=== PATIENT | female | born 1935 | race Caucasian/White ===

== ENCOUNTER 2017-02-23 09:29 | Inpatient (IN) ==
[2017-02-23] MEDS ORDERED: ACETAMINOPHEN 325 MG TABLET PO PRN (12:38)
[2017-02-23] MEDS ORDERED: ONDANSETRON 4 MG/2 ML VIAL IV PRN (12:38)
--- NOTE | 2017-02-23 13:50 | Hospitalist History & Physical ---
<Adryan Xiong - Last Filed: 02/23/17 16:36> Assessment and Plan (1) GI bleed Status: Acute Assessment and plan: Patient reported hematemesis and dark loose stools. H&H is 10.5 and 32.2. Of note the patient is on warfarin and therapeutic at 2.5. Will obtain CBC here. Type and screen and transfuse as indicated. GI has been consulted. Current Visit: Yes (2) Hypertension Status: Acute Current Visit: Yes (3) History of TIA (transient ischemic attack) Status: Acute Current Visit: Yes (4) History of pulmonary embolus (PE) Status: Acute Assessment and plan: Patient on warfarin therapy. INR is 2.5. Current Visit: Yes (5) Heart failure, systolic and diastolic Status: Acute Current Visit: No History of Present Illness Chief complaint: GI bleed History of present illness: Ms. Gannon is a 81 year old female with a past medical history significant for hypertension, pulmonary embolism, TIA, chronic back pain who presents to [facility] as a direct admit transfer from [facility] and [facility] for further evaluation of GI bleed. Patient notes that she has been having "dizzy spells" earlier this week and at approximately 4 AM this morning needed to go to the restroom and noted "black loose stool". Patient returned to her room and slept in an upright position before having to return to the bathroom to vomit. She reports that she had dark red emesis thatwas difficult to control. Patient states that "it felt like it was going on forever". Patient's grandson called EMS who took the patient to [facility]. There, the patient was found to be anemic with H&H 10.5 and 32.2, BUN 68, creatinine 1.17. On exam here at [place], the patient noted that she had been diaphoretic and near syncope. Her only complaint at this time is a dry mouth. She denies headache, blurred vision, palpitations, chest pain, shortness of breath, abdominal pain, numbness or tingling. Case has been discussed with Dr. Gonzalez, and the patient will be evaluated for further treatment. GI has been consulted for possible upper and lower scope. Patient is listed as a full code. Medications have been reviewed and reconciled. Home Medications Medication Instructions Recorded Confirmed Type Albuterol Sulfate [Ventolin HFA] 2 puff INH Q6H PRN 11/18/16 02/23/17 History Carvedilol 6.25 mg PO BID 11/18/16 02/23/17 History Furosemide Tab [Lasix Tab] 40 mg PO BID DIURETIC #0 11/18/16 02/23/17 Rx Isosorbide Mononitrate 10 mg PO BID #0 11/18/16 11/18/16 Rx Levothyroxine Tab [Synthroid Tab] 150 mcg PO DAILY@0700 11/18/16 02/23/17 History Losartan Potassium 100 mg PO DAILY #0 11/18/16 02/23/17 Rx Potassium Chloride [Klor-Con 10] 10 meq PO BID #0 11/18/16 02/23/17 Rx Spironolactone 12.5 mg PO BID #0 11/18/16 02/23/17 Rx Warfarin [Coumadin] 4 mg PO DAILY@1800 #0 11/18/16 02/23/17 Rx traZODone [Desyrel] 25 mg PO BEDTIME 11/18/16 02/23/17 History Allergies Allergy/AdvReac Type Severity Reaction Status Date / Time codeine Allergy Mild ITCHING Verified 11/18/16 10:48 Penicillins Allergy ITCHING Verified 11/18/16 10:48 Medical,Surgical,& Family Hx - Medical History Cardio: History of: CHF, Hypertension Neurology: History of: Cerebrovascular Accident, TIA No history of: Seizures Endocrine: History of: Thyroid Disorder Respiratory: History of: Pulmonary Embolism Musculoskeletal: History of: Musculoskeletal Problems (knee injections, arthritis) - Surgical History HEENT Surgeries: Surgical HX of: Tonsilectomy & Adenoidectomy Abdominal Surgeries: Surgical HX of: Cholecystectomy Reproductive Surgeries: Surgical HX of;: Breast Surgery (cyst removed from breast), Hysterectomy Orthopedic Surgeries: Surgical HX of;: Orthopedic Surgery (heel surgery) - Family History Family History: Reports;: Family Cancer (mother- skin cancer), Family Heart Disease (mother, father), Family Hypertension (mother, father), Family Stroke ( father) Denies;: Family Anesthesia Reaction, Family Diabetes, Family Hematology, Family Psychiatric Problems, Additional Family History - Social History Smoking Status: Never smoker Frequency of Alcohol Use: None Type of Drug Use: None Marital Status: Single Lives With:: Grandson Functional capacity: independent ambulation - Constitutional Constitutional: Present: weakness. Absent: chills, headache(s) - EENT Eyes: Absent: blurry vision, loss of vision Nose, mouth and throat: Absent: headache(s), neck pain, sore throat - Cardiovascular Cardiovascular: Present: diaphoresis. Absent: chest pain at rest, dyspnea, edema, palpitations - Respiratory Respiratory: Absent: cough, dyspnea, wheezing, snoring - Gastrointestinal Gastrointestinal: Present: diarrhea, hematemesis, loose stools, melena. Absent : abdominal pain - Genitourinary Genitourinary: Absent: dysuria, flank pain - Musculoskeletal Musculoskeletal: Present: back pain. Absent: limited range of motion, muscle weakness - Neurological Neurological: Present: dizziness. Absent: abnormal gait, abnormal speech, numbness, syncope - Psychiatric Psychiatric: Absent: anxiety, depression - Endocrine Endocrine: Absent: cold intolerance, fatigue, heat intolerance - Hematologic/Lymphatic Hematologic/Lymphatic: Present: easy bleeding, easy bruising Exam - Constitutional Vitals: Period Temp Pulse Resp BP Sys/Diaz Pulse Ox Last 24 Hr 97.8 F 94 18 116/61 98 Exam: General appearance: overweight, mild distress - Head Head exam: Present: normocephalic, atraumatic - Eye Eye exam: Present: EOMI. Absent: conjunctival injection, nystagmus Pupils: Present: SPENCER, normal accommodation - ENT ENT exam: Present: normal exam, normal external ear exam - Neck Neck exam: Present: normal inspection. Absent: lymphadenopathy, tenderness, thyromegaly - Respiratory Respiratory exam: Present: clear to auscultation bilaterally. Absent: rales, rhonchi, wheezes - Cardiovascular Cardiovascular exam: Present: regular rate and rhythm. Absent: carotid bruit, gallop, rubs - GI/Abdominal GI/Abdominal exam: Present: normal bowel sounds. Absent: ascites, distended, mass - Extremities Exam Extremities exam: Present: normal inspection, normal capillary refill. Absent: edema - Back Exam Back exam: Absent: CVA tenderness (L), CVA tenderness (R) - Neurological Exam Neurological exam: Present: alert, oriented X3 - Psychiatric Psychiatric exam: Present: normal affect, normal mood - Skin Skin exam: Present: normal color, warm, dry <Lana Gonzalez - Last Filed: 02/24/17 07:28> History of Present Illness History of present illness: Ms. Gannon is a 81 year old female with dark red emesis and dark tarry stools. She takes Coumadin for PE and INR was 2.3 from the other hospital. Plan GI consult Serial cbc IVF INR in am hold Coumadin for now Exam - Constitutional Vitals: Period Temp Pulse Resp BP Sys/Diaz Pulse Ox Last 24 Hr 96.4 F-99.2 F 69-104 18-22 116-157/49-70 90-99 Results - Labs CBC & BMP: 02/24/17 00:26
[2017-02-23] MEDS ORDERED: PANTOPRAZOLE 40 MG VIAL IV ONE (15:08)
--- NOTE | 2017-02-23 15:27 | Gastrointestinal Consult Note ---
<Megan Escobar - Last Filed: 02/23/17 15:40> Assessment and Plan (1) GI bleed Status: Acute Assessment and plan: 02/23-sudden onset of nausea with vomiting of dark red emesis without associated abdominal pain. No melena or hematochezia. On Coumadin therapy for history of PE with last dose last night. Transfer labs noted with H&H of 10 and 32, INR 2.3. Current lab work pending at present time. May start clear liquids at present time and tentative EGD tomorrow to further evaluate. Plan an addendum to follow by Dr. Hernandez. Current Visit: Yes History of Present Illness Chief complaint: Hematemesis History of present illness: Ms. Gannon is a 81 year old female who presented to the emergency room with sudden onset of nausea and vomiting of dark red blood. Patient states that she was in her usual state of health until last night. She states that she did not feel well in general and felt a little nauseated and went to bed. She states that she woke suddenly this morning at 4 AM and went to the bathroom and had an episode of vomiting in which she states she vomited a large amount of dark red emesis. She states that some of the emesis was dark black but denies any coffee -ground appearance. She states that she did this 2 or 3 times until her family came in to check on her. At that time they then decided to come to the emergency room for further evaluation. Patient was initially seen at [facility]. Her initial lab work showed an H&H of 10 and 32, BUN/ creatinine ratio 58.1, and an INR of 2.3. She was then transferred to our facility for further evaluation. Patient states that she has never had this happen in the past. She states that she has no abdominal pain associated with this. She denies any melena or hematochezia prior to this. She states she does take Coumadin for history of PE 2 years ago and was to take her last dose tonight before holding it for 1 week for a back injection next week in [place]. She reports taking the Coumadin last night prior to bed. She denies any reflux symptoms, dysphagia, dyspepsia, or weight loss. She denies any prior endoscopy, upper or lower. She denies any NSAID use however upon reviewing her medication list from her transfer, she is noted to have Toradol ordered as needed however states she does not take this regularly. She has a history of cholecystectomy in the past. She also has a reported history of TIA, CHF, and hypertension. She states that she saw Dr. Jain last week for cough and she was found at that time to have increased fluid around her heart and was diuresed. She states that she has had no further coughing since last week. She has had no further vomiting episodes since 4 AM this morning. Home Medications Medication Instructions Recorded Confirmed Type Albuterol Sulfate [Ventolin HFA] 2 puff INH Q6H PRN 11/18/16 02/23/17 History Carvedilol 6.25 mg PO BID 11/18/16 02/23/17 History Furosemide Tab [Lasix Tab] 40 mg PO BID DIURETIC #0 11/18/16 02/23/17 Rx Isosorbide Mononitrate 10 mg PO BID #0 11/18/16 11/18/16 Rx Levothyroxine Tab [Synthroid Tab] 150 mcg PO DAILY@0700 11/18/16 02/23/17 History Losartan Potassium 100 mg PO DAILY #0 11/18/16 02/23/17 Rx Potassium Chloride [Klor-Con 10] 10 meq PO BID #0 11/18/16 02/23/17 Rx Spironolactone 12.5 mg PO BID #0 11/18/16 02/23/17 Rx Warfarin [Coumadin] 4 mg PO DAILY@1800 #0 11/18/16 02/23/17 Rx traZODone [Desyrel] 25 mg PO BEDTIME 11/18/16 02/23/17 History Allergies Allergy/AdvReac Type Severity Reaction Status Date / Time codeine Allergy Mild ITCHING Verified 11/18/16 10:48 Penicillins Allergy ITCHING Verified 11/18/16 10:48 Medical,Surgical,& Family Hx - Medical History Cardio: History of: CHF, Hypertension Neurology: History of: Cerebrovascular Accident, TIA No history of: Seizures Endocrine: History of: Thyroid Disorder Respiratory: History of: Pulmonary Embolism Musculoskeletal: History of: Musculoskeletal Problems (knee injections, arthritis) - Surgical History HEENT Surgeries: Surgical HX of: Tonsilectomy & Adenoidectomy Abdominal Surgeries: Surgical HX of: Cholecystectomy Reproductive Surgeries: Surgical HX of;: Breast Surgery (cyst removed from breast), Hysterectomy Orthopedic Surgeries: Surgical HX of;: Orthopedic Surgery (heel surgery) - Family History Family History: Reports;: Family Cancer (mother- skin cancer), Family Heart Disease (mother, father), Family Hypertension (mother, father), Family Stroke ( father) Denies;: Family Anesthesia Reaction, Family Diabetes, Family Hematology, Family Psychiatric Problems, Additional Family History - Social History Smoking Status: Never smoker Frequency of Alcohol Use: None Type of Drug Use: None 12 point system: reviewed and no additional remarkable complaints except as stated - Constitutional Constitutional: Present: as per HPI - EENT Eyes: Present: as per HPI Ears: Present: as per HPI Nose, mouth and throat: Present: as per HPI - Cardiovascular Cardiovascular: Present: as per HPI - Respiratory Respiratory: Present: as per HPI - Gastrointestinal Gastrointestinal: Present: as per HPI, hematemesis - Genitourinary Genitourinary: Present: as per HPI - Musculoskeletal Musculoskeletal: Present: as per HPI - Neurological Neurological: Present: as per HPI - Psychiatric Psychiatric: Present: as per HPI - Endocrine Endocrine: Present: as per HPI - Hematologic/Lymphatic Hematologic/Lymphatic: Present: as per HPI Exam - Constitutional Vitals: Period Temp Pulse Resp BP Sys/Diaz Pulse Ox Last 24 Hr 97.8 F 94 18 116/61 98 General appearance: normal weight, no acute distress - Head Head exam: Present: normal inspection, normocephalic - Eye Eye exam: Present: other (lids and conjunctiva unremarkable). Absent: scleral icterus - ENT ENT exam: Present: normal exam, normal oropharynx - Neck Neck exam: Present: normal inspection - Respiratory Respiratory exam: Present: clear to auscultation bilaterally. Absent: rhonchi, stridor, wheezes - Cardiovascular Cardiovascular exam: Present: regular rate and rhythm. Absent: diastolic murmur , JVD, systolic murmur - GI/Abdominal GI/Abdominal exam: Present: normal bowel sounds, soft. Absent: ascites, distended, mass, tenderness - Extremities Exam Extremities exam: Present: normal inspection, full ROM - Back Exam Back exam: Present: normal inspection - Neurological Exam Neurological exam: Present: alert, oriented X3 - Psychiatric Psychiatric exam: Present: normal affect, normal mood - Skin Skin exam: Present: normal color, warm, dry Results - Labs Lab Results: I have reviewed the past 24 hour labs <Corky Hernandez - Last Filed: 02/23/17 18:25> History of Present Illness History of present illness: Ms. Gannon is a 81 year old female Exam - Constitutional Vitals: Period Temp Pulse Resp BP Sys/Diaz Pulse Ox Last 24 Hr 97.8 F-98.5 F 94-100 18-18 116-121/60-61 97-98
[2017-02-23] MEDS: SODIUM CHLORIDE 0.9% 1,000 ML IV SCH (16:59)
[2017-02-23] MEDS ORDERED: PHYTONADIONE 10 MG/1 ML AMP SUBCUT ONE (18:26)
[2017-02-23 19:17] LABS: Apearance,Urine CLOUDY (Clear); Bacteria,Urine Moderate /HPF (Few); Bilirubin,Urine Negative (Negative); Blood, Urine Large mg/dL (Negative); Glucose,Urine (UA) Negative (Negative); Hyaline Casts,Urine 2 /LPF (0-3); Ketones,Urine Negative (Negative); Mucus,Urine Occasional /LPF (Occasional); Nitrite,Urine Negative (Negative); Protein,Urine Negative; RBC,Urine 10 /HPF (0-4); Squamous Epithelial Cell,Urine Occasional /HPF (0-10); Urine Color Yellow (Yellow); Urine Specific Gravity 1.015 (1.001-1.035); Urine Urobilinogen < 2.0 EU/DL (0.2-1.0); WBC,Urine 9 /HPF (0-6)
[2017-02-23] MEDS ORDERED: PANTOPRAZOLE 40 MG TABLET PO SCH (21:00)
[2017-02-23 21:15] LABS: Basophils % 0.1 % (0.0-0.8); Eosinophils % 0.3 % (0.00-10.9); Hematocrit 22.3 VOL% (35.7-47.0); Hemoglobin 7.1 GM/DL (12.0-16.0); Immature Granulocytes % 0.7 %; Immature Granulocytes Absolute 0.08 #; Lymphocytes % 17.5 % (21.3-54.2); Mean Corpuscular HGB Conc 31.8 GM/DL (32-36); Mean Corpuscular Hemoglobin 31 PG (27-34); Mean Corpuscular Volume 98.2 FL (87-102); Mean Platelet Volume 10.7 FL (9.6-12.0); Monocytes # 1.1 10*3/uL (0.11-0.8); Monocytes % 9.9 % (1.7-12.7); Neutrophils # 8.2 10*3/uL (1.4-7.4); Neutrophils % 71.5 % (38.7-73.9); Platelet Count 167 T/CUMM (130-400); Red Blood Count 2.27 MC/CUMM (3.8-5.5); Red Cell Distribution Width 13.9 % (9.3-17.3); White Blood Count 11.5 T/CUMM (4-12)
[2017-02-23] MEDS: PANTOPRAZOLE 40 MG VIAL IV SCH (21:46)
[2017-02-23] MEDS: traZODone 50 MG TABLET PO SCH (21:47)
[2017-02-23] MEDS ORDERED: SODIUM CHLORIDE 0.9% 250 ML IV PRN (23:31)
[2017-02-24 01:08] LABS: Basophils % 0.2 % (0.0-0.8); Eosinophils # 0.1 10*3/uL (0.0-0.87); Eosinophils % 0.5 % (0.00-10.9); Hematocrit 20.7 VOL% (35.7-47.0); Hemoglobin 6.5 GM/DL (12.0-16.0); Immature Granulocytes % 1.3 %; Immature Granulocytes Absolute 0.14 #; Lymphocytes # 2.2 10*3/uL (1.4-4.0); Lymphocytes % 20.3 % (21.3-54.2); Mean Corpuscular HGB Conc 31.4 GM/DL (32-36); Mean Corpuscular Hemoglobin 31 PG (27-34); Mean Corpuscular Volume 97.6 FL (87-102); Mean Platelet Volume 11.1 FL (9.6-12.0); Monocytes # 1.1 10*3/uL (0.11-0.8); Monocytes % 9.6 % (1.7-12.7); Neutrophils # 7.5 10*3/uL (1.4-7.4); Neutrophils % 68.1 % (38.7-73.9); Platelet Count 170 T/CUMM (130-400); Red Blood Count 2.12 MC/CUMM (3.8-5.5); Red Cell Distribution Width 13.8 % (9.3-17.3)
[2017-02-24] MEDS: NITROFURANTOIN MACRO/MONO 100 MG CAPSULE PO SCH ×3 (01:17→20:52)
[2017-02-24] MEDS ORDERED: FUROSEMIDE 20 MG/2 ML VIAL IM ONE (03:22)
[2017-02-24] MEDS ORDERED: FUROSEMIDE 40 MG/4 ML VIAL ONE (04:58)
[2017-02-24] MEDS ORDERED: FUROSEMIDE 20 MG/2 ML VIAL IV ONE (05:00)
[2017-02-24] MEDS: SODIUM CHLORIDE 0.9% 1,000 ML IV SCH ×2 (05:03→23:06)
--- NOTE | 2017-02-24 07:22 | EKG Report ---
Stationary ECG Study [facility] Test Date: 02/24/2017 7:22:19 AM Pat Name: SHASHANK CONTEH Department: Room: 537 Gender: F Development Manager: : 1935 Requested by: Govind Antunez Order Number: [id number] Reading MD: KEVIN PAEZ Intervals [place] Rate: 81 P: 69 PA: 200 QRS: -66 QRSD: 156 T: 59 QT: 420 QTc: 458 Interpretive Statements SINUS RHYTHM WITH FREQUENT SUPRAVENTRICULAR PREMATURE COMPLEXES LEFT BUNDLE BRANCH BLOCK Electronically Signed On 02-25-17 16:17:25 CDT by KEVIN PAEZ [email or web address]
[2017-02-24] MEDS: LEVOTHYROXINE 150 MCG TABLET PO SCH (08:41)
[2017-02-24] MEDS: PANTOPRAZOLE 40 MG VIAL IV SCH ×2 (08:41→20:52)
[2017-02-24] MEDS ORDERED: PROPOFOL 200 MG/20 ML VIAL IV ONE (09:00)
[2017-02-24] MEDS ORDERED: LIDOCAINE 1% 5 ML VIAL ONE (09:00)
[2017-02-24 09:42] LABS: Basophils % 0.2 % (0.0-0.8); Eosinophils # 0.1 10*3/uL (0.0-0.87); Eosinophils % 0.9 % (0.00-10.9); Hematocrit 28.3 VOL% (35.7-47.0); Immature Granulocytes % 0.7 %; Immature Granulocytes Absolute 0.08 #; Lymphocytes % 18.1 % (21.3-54.2); Mean Corpuscular HGB Conc 32.9 GM/DL (32-36); Mean Corpuscular Hemoglobin 30 PG (27-34); Mean Corpuscular Volume 91.6 FL (87-102); Monocytes # 1.1 10*3/uL (0.11-0.8); Monocytes % 10.4 % (1.7-12.7); Neutrophils # 7.6 10*3/uL (1.4-7.4); Neutrophils % 69.7 % (38.7-73.9); Platelet Count 157 T/CUMM (130-400); Red Cell Distribution Width 15.3 % (9.3-17.3); White Blood Count 10.9 T/CUMM (4-12)
[2017-02-24 09:46] LABS: Hemoglobin 9.3 GM/DL (12.0-16.0); Red Blood Count 3.09 MC/CUMM (3.8-5.5)
[2017-02-24 09:51] LABS: INR 1.6; PT Patient Result 17.3 SECS
--- NOTE | 2017-02-24 09:58 | Hospitalist Progress Note ---
<Adryan Xiong - Last Filed: 02/24/17 09:56> Assessment and Plan (1) GI bleed Status: Acute Assessment and plan: Patient reported hematemesis and dark loose stools. H&H is 10.5 and 32.2. Of note the patient is on warfarin and therapeutic at 2.5. Will obtain CBC here. Type and screen and transfuse as indicated. GI has been consulted. 02/24/17-H&H noted to have dropped overnight down to 6.5 and 20.7. Patient was transfused with 1 unit of RBCs this morning. H&H has since come up to 9.3 and 28.3. Patient is scheduled to have EGD this morning. Will likely transfuse another unit of blood post EGD. Warfarin has been held. Patient was given 5 mg of vitamin K in preparation for EGD. INR down to 1.6 this morning. Current Visit: Yes (2) Hypertension Status: Acute Assessment and plan: Blood pressure remained stable. Continue current treatment plan. Current Visit: Yes (3) History of TIA (transient ischemic attack) Status: Acute Current Visit: Yes (4) History of pulmonary embolus (PE) Status: Acute Assessment and plan: Patient on warfarin therapy. INR is 2.5. 02/24/17-warfarin has been held due to GI bleeding. Current Visit: Yes (5) Heart failure, systolic and diastolic Status: Acute Current Visit: No Hospitalist: Subjective Interval history: Patient seen and examined today. She was lying in bed awake and alert on exam. Patient states she is feeling about the same with no new complaints overnight. Patient did have a drop in H&H overnight with the last documented H& H overnight being 6.5 and 20.7. Patient was transfused with 1 unit of RBCs this morning. She is scheduled for an EGD this morning by GI. Will likely transfuse another unit of blood post EGD. Exam - Constitutional Vitals: Period Temp Pulse Resp BP Sys/Diaz Pulse Ox Last 24 Hr 96.4 F-99.2 F 69-104 18-22 116-157/49-72 90-99 Exam: General appearance: overweight, mild distress - Head Head exam: Present: normocephalic, atraumatic - Eye Eye exam: Present: EOMI. Absent: conjunctival injection, nystagmus Pupils: Present: SPENCER, normal accommodation - ENT ENT exam: Present: normal exam, normal external ear exam - Neck Neck exam: Present: normal inspection. Absent: lymphadenopathy, tenderness, thyromegaly - Respiratory Respiratory exam: Present: clear to auscultation bilaterally. Absent: rales, rhonchi, wheezes - Cardiovascular Cardiovascular exam: Present: regular rate and rhythm. Absent: carotid bruit, gallop, rubs - GI/Abdominal GI/Abdominal exam: Present: normal bowel sounds. Absent: ascites, distended, mass - Extremities Exam Extremities exam: Present: normal inspection, normal capillary refill. Absent: edema - Back Exam Back exam: Absent: CVA tenderness (L), CVA tenderness (R) - Neurological Exam Neurological exam: Present: alert, oriented X3 - Psychiatric Psychiatric exam: Present: normal affect, normal mood - Skin Skin exam: Present: normal color, warm, dry Results - Labs CBC & BMP: 02/24/17 09:14 Lab Results: I have reviewed the past 24 hour labs <Lana Gonzalez - Last Filed: 02/24/17 15:44> Hospitalist: Subjective Interval history: Patient has no episode of bleed since admission. Exam - Constitutional Vitals: Period Temp Pulse Resp BP Sys/Diaz Pulse Ox Last 24 Hr 96.4 F-99.2 F 69-104 14-22 106-157/49-73 88-100 Results - Labs CBC & BMP: 02/24/17 09:14 02/24/17 09:14
[2017-02-24 10:21] LABS: Calcium 8.2 MG/DL (8.5-10.1); Magnesium 2.1 MG/DL (1.8-2.4); Osmolality,Calculated 311.4 MOS/KG (273-304); Potassium 4.2 MMOL/L (3.5-5.1)
[2017-02-24 10:22] LABS: Free T4 (Free Thyroxine) 0.84 NG/DL (0.76-1.46); Risk Ratio 4.81; Thyroid Stimulating Hormone 1.48 uIU/ml (0.358-3.74)
--- NOTE | 2017-02-24 11:21 | History and Physical Update ---
History and Physical Update - Physical Exam Mental Status: alert and oriented Heart: regular rate and rhythm Lung: clear to auscultation Abdomen: within normal limits Vitals: within normal limits
--- NOTE | 2017-02-24 11:24 | Anesthesia Post-Op ---
Anesthesia Post OP - Post Ansesthetic Evaluation Patient seen in post op: Yes Resp: within normal limits CV: within normal limits Mental: within normal limits Temp: within normal limits [id number]: within normal limits Nausea and Vomiting: within normal limits Pain: within normal limits
--- NOTE | 2017-02-24 11:24 | Operative Note ---
Date of procedure: 02/24/17 Pre-op diagnosis: Epigastric pain and acute GI bleed Procedure: EGD 81-year-old female who was admitted with hematemesis complicated by Coumadin therapy with elevated INR. She is now for upper endoscopy to further evaluate. Informed symptoms obtained the patient She was sedated with MAC anesthesia per anesthesia protocol. Patient placed left lateral decubitus position the Olympus flexible video upper endoscope was inserted into the oral cavity under direct vision the esophagus was intubated. Findings: Esophagus-normal proximal mid esophageal mucosa distal esophagus normal. Small hiatal hernia was seen Stomach-normal insufflation normal mucosa to direct retroflexed views of the body fundus and cardia the stomach. In the antrum the stomach there is mild erosive gastritis seen. Pylorus-6 mm pyloric channel ulcer with no visible vessel was identified. Duodenum-normal from the bulb and duodenum to the third portion of the duodenum. The procedure terminated placed our procedure well Postop diagnosis: 1. Acute pyloric channel ulceration.-Continue IV PPI treatment and monitor H& H. No stigmata to suggest high risk of ongoing bleeding but will need to hold her Coumadin for 4-6 weeks. 2. Gastroesophageal reflux disease-continue PPI treatment. Anesthesia: MAC Surgeon / Physician: Corky Hernandez Estimated blood loss: none Specimens: none sent Condition: stable Disposition: post procedure unit Results - Labs CBC & BMP: 02/24/17 09:14 02/24/17 09:14 Discharge Plan - Discharge Medications No Action Levothyroxine Tab [Synthroid Tab] 150 mcg PO DAILY@0700 Furosemide Tab [Lasix Tab] 40 mg PO BID DIURETIC #0 Losartan Potassium 100 mg PO DAILY #0 Potassium Chloride [Klor-Con 10] 10 meq PO BID #0 Spironolactone 12.5 mg PO BID #0 Warfarin [Coumadin] 4 mg PO DAILY@1800 #0 Spironolactone 12.5 mg PO BID Albuterol Sulfate [Ventolin HFA] 2 puff INH Q6H PRN PRN Reason: Shortness Of Breath/Wheezing traZODone [Desyrel] 25 mg PO BEDTIME Carvedilol 6.25 mg PO BID Ketorolac Tab [Toradol Tab] 10 mg PO Q6H PRN PRN Reason: Pain - Follow Up or Referral - Forms/Instructions
[2017-02-24] MEDS: traZODone 50 MG TABLET PO SCH (20:52)
[2017-02-24] MEDS: DESITIN 4OZ/NYSTATIN 15 GRAM MIXTURE PASTE TOP SCH (20:56)
[2017-02-25] MEDS: LEVOTHYROXINE 150 MCG TABLET PO SCH (06:33)
[2017-02-25 06:43] LABS: Basophils % 0.3 % (0.0-0.8); Eosinophils # 0.2 10*3/uL (0.0-0.87); Eosinophils % 3.6 % (0.00-10.9); Hematocrit 24.6 VOL% (35.7-47.0); Immature Granulocytes % 0.6 %; Immature Granulocytes Absolute 0.04 #; Lymphocytes # 1.6 10*3/uL (1.4-4.0); Lymphocytes % 23.5 % (21.3-54.2); Mean Corpuscular HGB Conc 32.5 GM/DL (32-36); Mean Corpuscular Hemoglobin 30 PG (27-34); Mean Corpuscular Volume 92.1 FL (87-102); Mean Platelet Volume 10.9 FL (9.6-12.0); Monocytes # 0.5 10*3/uL (0.11-0.8); Monocytes % 7.6 % (1.7-12.7); Neutrophils # 4.3 10*3/uL (1.4-7.4); Neutrophils % 64.4 % (38.7-73.9); Platelet Count 129 T/CUMM (130-400); Red Blood Count 2.67 MC/CUMM (3.8-5.5); Red Cell Distribution Width 15.4 % (9.3-17.3); White Blood Count 6.7 T/CUMM (4-12)
[2017-02-25 07:11] LABS: Calcium 7.9 MG/DL (8.5-10.1); Magnesium 2.3 MG/DL (1.8-2.4); Osmolality,Calculated 300.4 MOS/KG (273-304); Potassium 3.8 MMOL/L (3.5-5.1)
[2017-02-25] MEDS: NITROFURANTOIN MACRO/MONO 100 MG CAPSULE PO SCH ×2 (08:12→20:04)
[2017-02-25] MEDS: PANTOPRAZOLE 40 MG VIAL IV SCH ×2 (08:13→20:04)
[2017-02-25] MEDS: DESITIN 4OZ/NYSTATIN 15 GRAM MIXTURE PASTE TOP SCH ×2 (08:13→20:04)
--- NOTE | 2017-02-25 10:07 | Gastrointestinal Progress Note ---
<Megan Escobar Renee - Last Filed: 02/25/17 09:10> Assessment and Plan (1) GI bleed Status: Acute Assessment and plan: 02/25-EGD findings noted as below. Hemoglobin holding at 8. Tolerating diet present time. Recommendation to hold Coumadin 4-6 weeks. Plan an addendum followed by Dr. Hernandez. 02/23-sudden onset of nausea with vomiting of dark red emesis without associated abdominal pain. No melena or hematochezia. On Coumadin therapy for history of PE with last dose last night. Transfer labs noted with H&H of 10 and 32, INR 2.3. Current lab work pending at present time. May start clear liquids at present time and tentative EGD tomorrow to further evaluate. Plan an addendum to follow by Dr. Hernandez. Current Visit: Yes Gastroenterology - PN: Subj Interval history: CC: GI bleed Patient seen awake and alert sitting up in bed eating breakfast. States she had an uneventful night. She denies any abdominal pain, nausea or vomiting. Abdomen is soft, nontender. EGD findings on yesterday shows acute pyloric channel ulceration with no stigmata to suggest high risk of ongoing bleeding however recommendations are made to continue to hold her Coumadin for 4-6 weeks at this time. Hemoglobin is stable at 8 at this time. She states she has not had a bowel movement yet. ROS: Denies shortness of breath or chest pain Exam (Progress Note) - Constitutional Vitals: Period Temp Pulse Resp BP Sys/Diaz Pulse Ox Last 24 Hr 96.5 F-98.2 F 66-80 14-22 106-142/50-81 88-100 General appearance: normal weight, no acute distress - Head Head exam: Present: normal inspection, normocephalic - Eye Eye exam: Present: other (Lids and conjunctive are unremarkable). Absent: scleral icterus - ENT ENT exam: Present: normal exam, normal oropharynx - Neck Neck exam: Present: normal inspection - Respiratory Respiratory exam: Present: clear to auscultation bilaterally. Absent: rales, rhonchi, wheezes - Cardiovascular Cardiovascular exam: Present: regular rate and rhythm. Absent: diastolic murmur , JVD, systolic murmur - GI/Abdominal GI/Abdominal exam: Present: normal bowel sounds, soft. Absent: ascites, distended, mass, organomegaly, tenderness - Extremities Exam Extremities exam: Present: normal inspection, full ROM - Back Exam Back exam: Present: normal inspection - Neurological Exam Neurological exam: Present: alert, oriented X3 - Psychiatric Psychiatric exam: Present: normal affect, normal mood - Skin Skin exam: Present: normal color, warm, dry Results - Labs CBC & BMP: 02/25/17 05:48 02/25/17 05:48 Lab Results: I have reviewed the past 24 hour labs <Corky Hernandez - Last Filed: 02/25/17 18:05> Exam (Progress Note) - Constitutional Vitals: Period Temp Pulse Resp BP Sys/Diaz Pulse Ox Last 24 Hr 96.2 F-97.9 F 66-74 16-20 113-152/57-81 95-100 Results - Labs CBC & BMP: 02/25/17 10:37 02/25/17 05:48
[2017-02-25 10:52] LABS: Hematocrit 25.4 VOL% (35.7-47.0); Hemoglobin 8.5 GM/DL (12.0-16.0)
--- NOTE | 2017-02-25 10:58 | Hospitalist Progress Note ---
<Adryan Xiong - Last Filed: 02/25/17 10:52> Assessment and Plan (1) GI bleed Status: Acute Assessment and plan: Patient reported hematemesis and dark loose stools. H&H is 10.5 and 32.2. Of note the patient is on warfarin and therapeutic at 2.5. Will obtain CBC here. Type and screen and transfuse as indicated. GI has been consulted. 02/24/17-H&H noted to have dropped overnight down to 6.5 and 20.7. Patient was transfused with 1 unit of RBCs this morning. H&H has since come up to 9.3 and 28.3. Patient is scheduled to have EGD this morning. Will likely transfuse another unit of blood post EGD. Warfarin has been held. Patient was given 5 mg of vitamin K in preparation for EGD. INR down to 1.6 this morning. 02/25/70-H&H down to 8 and 24.6 today. Patient did have an EGD on yesterday which revealed pyloric channel ulceration and GERD. GI recommends continuation of PPI therapy, monitor H&H, and holding Coumadin for 4-6 weeks. We are rechecking H&H today. Current Visit: Yes (2) Hypertension Status: Acute Assessment and plan: Blood pressure remained stable. Continue current treatment plan. Current Visit: Yes (3) History of TIA (transient ischemic attack) Status: Acute Current Visit: Yes (4) History of pulmonary embolus (PE) Status: Acute Assessment and plan: Patient on warfarin therapy. INR is 2.5. 02/24/17-warfarin has been held due to GI bleeding. Current Visit: Yes (5) Heart failure, systolic and diastolic Status: Acute Current Visit: No Hospitalist: Subjective Interval history: Patient seen and examined today. She is lying in bed awake and alert. Patient had her EGD on yesterday which revealed pyloric channel ulceration and GERD. GI recommends continuation of PPI therapy and holding Coumadin for 4-6 weeks. Patient did have a bowel movement with dark, loose stool. H&H remains low (8 and 24.6) despite transfusion and no evidence of bleeding per EGD. We will await the results of lab. Exam - Constitutional Vitals: Period Temp Pulse Resp BP Sys/Diaz Pulse Ox Last 24 Hr 96.5 F-98.2 F 66-76 14-20 106-138/50-81 96-100 Exam: General appearance: overweight, no acute distress - Head Head exam: Present: normocephalic, atraumatic - Eye Eye exam: Present: EOMI. Absent: conjunctival injection, nystagmus Pupils: Present: SPENCER, normal accommodation - ENT ENT exam: Present: normal exam, normal external ear exam - Neck Neck exam: Present: normal inspection. Absent: lymphadenopathy, tenderness, thyromegaly - Respiratory Respiratory exam: Present: clear to auscultation bilaterally. Absent: rales, rhonchi, wheezes - Cardiovascular Cardiovascular exam: Present: regular rate and rhythm. Absent: carotid bruit, gallop, rubs - GI/Abdominal GI/Abdominal exam: Present: normal bowel sounds. Absent: ascites, distended, mass - Extremities Exam Extremities exam: Present: normal inspection, normal capillary refill. Absent: edema - Back Exam Back exam: Absent: CVA tenderness (L), CVA tenderness (R) - Neurological Exam Neurological exam: Present: alert, oriented X3 - Psychiatric Psychiatric exam: Present: normal affect, normal mood - Skin Skin exam: Present: normal color, warm, dry Results - Labs CBC & BMP: 02/25/17 05:48 02/25/17 05:48 <Lana Gonzalez - Last Filed: 02/25/17 14:04> Hospitalist: Subjective Interval history: His repeat H/H- 8.5/25.4. Patient can actually go home in am if she continue to improve. Exam - Constitutional Vitals: Period Temp Pulse Resp BP Sys/Diaz Pulse Ox Last 24 Hr 96.5 F-98.2 F 66-75 16-20 113-146/57-81 95-99 Results - Labs CBC & BMP: 02/25/17 10:37 02/25/17 05:48
[2017-02-25] MEDS: SODIUM CHLORIDE 0.9% 1,000 ML IV SCH (11:36)
--- NOTE | 2017-02-25 14:25 | Physician Query Form ---
CLICK EDIT DOCUMENT TO SELECT QUERY ANSWER --> OK --> SIGN Melyssa Newsome RN Clinical [employer] W) [phone] (f) [phone] [email or web address] PROVIDERS: Make your selection(s) from the choices in EACH section by typing an "x" and enter comments in the comment section. Please use your independent medical judgment in providing your response. This request does not imply that any particular answer is desired or expected. CLINICAL INDICATORS: (Providers should not edit this section) Based on documentation of "Acute GI bleeding" "Hematemesis. unclear etiology" hold coumadin and give vitamin K. Transfused 2 units of PRBC. Based on the above, could you clarify which of the following conditions you are evaluating, treating, and/or monitoring? (x ) Blood loss anemia ( x) acute ( ) chronic ( ) acute on chronic ( ) Acute blood loss anemia on baseline chronic anemia ( ) Acute blood loss anemia as a complication of a procedure ( ) Iron deficiency anemia not associated with blood loss ( ) Anemia due to chronic kidney disease ( ) Pernicious anemia ( ) Aplastic anemia ( ) Hemolytic anemia ( ) immune ( ) non-immune - please specify cause: ( ) Anemia due to other condition, please specify: ( ) Clinically unable to determine COMMENTS: PLEASE ALSO DOCUMENT RESPONSE IN PROGRESS NOTES AND/OR DISCHARGE SUMMARY Use of terms such as suspected, likely, or probable (associated with a specific diagnosis that is being evaluated, monitored, or treated as if it exists) are acceptable and can be restated in the discharge summary if not ruled out. MTDD
[2017-02-25] MEDS: traZODone 50 MG TABLET PO SCH (20:04)
[2017-02-26] MEDS: SODIUM CHLORIDE 0.9% 1,000 ML IV SCH ×2 (00:50→14:12)
[2017-02-26 06:25] LABS: Basophils % 0.3 % (0.0-0.8); Eosinophils # 0.3 10*3/uL (0.0-0.87); Hematocrit 24.5 VOL% (35.7-47.0); Immature Granulocytes % 0.4 %; Immature Granulocytes Absolute 0.03 #; Lymphocytes # 1.6 10*3/uL (1.4-4.0); Lymphocytes % 23.5 % (21.3-54.2); Mean Corpuscular HGB Conc 32.7 GM/DL (32-36); Mean Corpuscular Hemoglobin 30 PG (27-34); Mean Corpuscular Volume 92.8 FL (87-102); Mean Platelet Volume 10.5 FL (9.6-12.0); Monocytes # 0.6 10*3/uL (0.11-0.8); Monocytes % 8.5 % (1.7-12.7); Neutrophils # 4.2 10*3/uL (1.4-7.4); Neutrophils % 63.3 % (38.7-73.9); Platelet Count 126 T/CUMM (130-400); Red Blood Count 2.64 MC/CUMM (3.8-5.5); White Blood Count 6.7 T/CUMM (4-12)
[2017-02-26 06:32] LABS: INR 1.1; PT Patient Result 11.9 SECS
[2017-02-26] MEDS: LEVOTHYROXINE 150 MCG TABLET PO SCH (06:34)
[2017-02-26 07:02] LABS: Osmolality,Calculated 292.6 MOS/KG (273-304); Potassium 3.8 MMOL/L (3.5-5.1)
[2017-02-26] MEDS: PANTOPRAZOLE 40 MG VIAL IV SCH (08:04)
[2017-02-26] MEDS: NITROFURANTOIN MACRO/MONO 100 MG CAPSULE PO SCH (08:04)
[2017-02-26] MEDS: DESITIN 4OZ/NYSTATIN 15 GRAM MIXTURE PASTE TOP SCH (08:05)
--- NOTE | 2017-02-26 08:26 | Gastrointestinal Progress Note ---
<Megan Escobar - Last Filed: 02/26/17 08:21> Assessment and Plan (1) GI bleed Status: Acute Assessment and plan: 02/26-no repeat labs this morning. Will recheck H&H this morning. Advance to soft diet. If H&H stable patient can be discharged from GI standpoint today. Plan an addendum to follow by Dr. Hernandez. 02/25-EGD findings noted as below. Hemoglobin holding at 8. Tolerating diet present time. Recommendation to hold Coumadin 4-6 weeks. Plan an addendum followed by Dr. Hernandez. 02/23-sudden onset of nausea with vomiting of dark red emesis without associated abdominal pain. No melena or hematochezia. On Coumadin therapy for history of PE with last dose last night. Transfer labs noted with H&H of 10 and 32, INR 2.3. Current lab work pending at present time. May start clear liquids at present time and tentative EGD tomorrow to further evaluate. Plan an addendum to follow by Dr. Hernandez. Current Visit: Yes Gastroenterology - PN: Subj Interval history: CC: GI bleed Patient is seen sitting up on side of bed eating breakfast. States she is feeling well and had an uneventful night. She denies any overt bleeding. States that she had a bowel movement on yesterday which was dark in color however no bright red bleeding. Denies any nausea or vomiting, denies abdominal pain, tolerating diet well at this time. Hemoglobin was not rechecked this morning, this is been ordered and labs pending. Will advance diet. Abdomen is soft, nontender. ROS: Denies shortness of breath or chest pain Exam (Progress Note) - Constitutional Vitals: Period Temp Pulse Resp BP Sys/Diaz Pulse Ox Last 24 Hr 96.1 F-97.9 F 69-78 18-22 141-152/63-74 93-100 General appearance: normal weight, no acute distress - Head Head exam: Present: normal inspection, normocephalic - Eye Eye exam: Present: other (Lids and conjunctivae unremarkable). Absent: scleral icterus - ENT ENT exam: Present: normal exam, normal oropharynx - Neck Neck exam: Present: normal inspection - Respiratory Respiratory exam: Present: clear to auscultation bilaterally. Absent: rales, rhonchi, wheezes - Cardiovascular Cardiovascular exam: Present: regular rate and rhythm. Absent: diastolic murmur , JVD, systolic murmur - GI/Abdominal GI/Abdominal exam: Present: normal bowel sounds, soft. Absent: ascites, distended, mass, organomegaly, tenderness - Extremities Exam Extremities exam: Present: normal inspection, full ROM - Back Exam Back exam: Present: normal inspection - Neurological Exam Neurological exam: Present: alert, oriented X3 - Psychiatric Psychiatric exam: Present: normal affect, normal mood - Skin Skin exam: Present: normal color, warm, dry Results - Labs CBC & BMP: 02/26/17 05:58 02/26/17 05:58 Lab Results: I have reviewed the past 24 hour labs <Corky Hernandez - Last Filed: 02/26/17 17:30> Exam (Progress Note) - Constitutional Vitals: Period Temp Pulse Resp BP Sys/Diaz Pulse Ox Last 24 Hr 96.1 F-98.1 F 69-78 18-22 133-147/63-74 93-100 Results - Labs CBC & BMP: 02/26/17 09:04 02/26/17 05:58
[2017-02-26 09:37] LABS: Hematocrit 25.9 VOL% (35.7-47.0); Hemoglobin 8.3 GM/DL (12.0-16.0)
--- NOTE | 2017-02-26 10:55 | Discharge Summary ---
<Adryan Xiong - Last Filed: 02/26/17 10:49> Hospital Course - Hospital Course Hospital Course: Ms. Gannon is an 81-year-old white female with a past medical history significant for hypertension, pulmonary embolism, TIA, chronic back pain who presented to the [facility] on 02/23/2017 hysterectomy transfer from [facility] and [facility] for further evaluation of GI bleed. Patient was admitted to the hospital medicine service with GI consultation. Her Coumadin was held in anticipation for EGD. On 02/24/2017, EGD per Dr. Hernandez found pyloric channel ulceration and evidence of GERD. GI recommended continuation of PPI therapy and holding her Coumadin therapy for an additional 4 -6 weeks. Patient did continue to have loose dark stool 1, however this has since resolved. At the time of discharge, the patient reports feeling much better with no bleeding per rectum or dark stools overnight. H&H is remaining stable around 8.3 and 25.9. She has reached maximum benefit from hospitalization at this time and is stable for discharge. She should follow-up with her primary care physician in 1 week and continue PPI therapy as prescribed. Further follow-up instructions and discharge orders to follow per Dr. Montoya. Diagnosis - Discharge Diagnosis (1) GI bleed Status: Acute (2) Hypertension Status: Acute (3) History of TIA (transient ischemic attack) Status: Acute (4) History of pulmonary embolus (PE) Status: Acute (5) Heart failure, systolic and diastolic Status: Acute Discharge Plan - Discharge Data Disposition: Disch To Home/Self Care - Discharge Medications New Nitrofurantoin Macro/[place] [Macrobid] 100 mg PO Q12H #6 capsule Continue Levothyroxine Tab [Synthroid Tab] 150 mcg PO DAILY@0700 Furosemide Tab [Lasix Tab] 40 mg PO BID DIURETIC #0 Losartan Potassium 100 mg PO DAILY #0 Potassium Chloride [Klor-Con 10] 10 meq PO BID #0 Spironolactone 12.5 mg PO BID #0 Albuterol Sulfate [Ventolin HFA] 2 puff INH Q6H PRN PRN Reason: Shortness Of Breath/Wheezing traZODone [Desyrel] 25 mg PO BEDTIME Carvedilol 6.25 mg PO BID Ketorolac Tab [Toradol Tab] 10 mg PO Q6H PRN PRN Reason: Pain Discontinued Warfarin [Coumadin] 4 mg PO DAILY@1800 #0 No Action Spironolactone 12.5 mg PO BID - Follow Up or Referral - Forms/Instructions Exam - Constitutional Vitals: Period Temp Pulse Resp BP Sys/Diaz Pulse Ox Last 24 Hr 96.1 F-98.0 F 69-78 18-22 141-152/63-74 93-100 General appearance: no acute distress, over weight - Head Head exam: Present: normal inspection, normocephalic, atraumatic - Eye Eye exam: Present: EOMI Pupils: Present: SPENCER - ENT ENT exam: Present: normal exam, normal external ear exam - Neck Neck exam: Present: normal inspection. Absent: lymphadenopathy, tenderness - Respiratory Respiratory exam: Present: clear to auscultation bilaterally. Absent: rhonchi, stridor, wheezes - Cardiovascular Cardiovascular exam: Present: regular rate and rhythm. Absent: carotid bruit - GI/Abdominal GI/Abdominal exam: Present: normal bowel sounds, soft. Absent: distended, mass , tenderness, rebound - Extremities Exam Extremities exam: Present: normal inspection, normal capillary refill. Absent: edema - Back Exam Back exam: Present: normal inspection - Neurological Exam Neurological exam: Present: alert, oriented X3, CN II-XII intact - Psychiatric Psychiatric exam: Present: normal affect, normal mood - Skin Skin exam: Present: normal color, warm, dry Discharge Results Procedures and tests throughout hospitalization: Pending Orders 02/23/17 20:54 Blood Culture Stat Labs on day of discharge: Labs from last 24 hours 02/26/17 02/26/17 02/26/17 09:04 05:58 05:58 WBC RBC Hgb 8.3 L Hct 25.9 L MCV MCH MCHC RDW Plt Count MPV Neut % (Auto) Lymph % (Auto) [place] % (Auto) Eos % (Auto) Baso % (Auto) Neut # (Auto) Lymph # (Auto) [place] # (Auto) Eos # (Auto) Baso # (Auto) Immature Gran % Nucleated RBC % Immature Gran # Nucleated RBCs # INR 1.1 PT Patient/Control Mix 11.9 D Sodium 146 H Potassium 3.8 Chloride 114 H Carbon Dioxide 24 Anion Gap 11.8 BUN 17 Creatinine 0.70 GFR Calculation 90 BUN/Creatinine Ratio 24.00 H Glucose 109 H Calculated Osmolality 292.6 Calcium 8.0 L 06/22/17 05:58 WBC 6.7 RBC 2.64 L Hgb 8.0 L Hct 24.5 L MCV 92.8 MCH 30 MCHC 32.7 RDW 15.0 Plt Count 126 L MPV 10.5 Neut % (Auto) 63.3 Lymph % (Auto) 23.5 [place] % (Auto) 8.5 Eos % (Auto) 4.0 Baso % (Auto) 0.3 Neut # (Auto) 4.2 Lymph # (Auto) 1.6 [place] # (Auto) 0.6 Eos # (Auto) 0.3 Baso # (Auto) 0.0 Immature Gran % 0.4 Nucleated RBC % 0.0 Immature Gran # 0.03 Nucleated RBCs # 0.00 INR PT Patient/Control Mix Sodium Potassium Chloride Carbon Dioxide Anion Gap BUN Creatinine GFR Calculation BUN/Creatinine Ratio Glucose Calculated Osmolality Calcium Preliminary micro results at discharge 02/23/17 20:54 Blood Culture - Preliminary Blood No growth at 1 day 02/23/17 20:54 Blood Culture - Preliminary Blood No growth at 1 day DS: Provider Date of admission: 02/23/17 12:40 Primary care physician: Brian Still MD Attending physician on admission: Lana Gonzalez MD Consults: 02/23/17 15:10 Consult to Physician [CONS] Routine Comment: Consulting Provider: Consult to Specialist Group: Gastroenterology Person Notified: Megan Escobar Date Notified: 02/23/17 Time Notified: 15:20 Discharging clinician: Adryan TOWNSEND Expected date of discharge: 02/26/17 <Marie Montoya - Last Filed: 02/26/17 12:42> Hospital Course - Time spent with patient Time with patient DS: Less than 30 minutes Diagnosis - Discharge Diagnosis (1) GI bleed Status: Resolved (2) Hypertension Status: Chronic (3) History of pulmonary embolus (PE) Status: Chronic Discharge Plan - Discharge Data Condition at Discharge: Stable Discharge Diet: advance to your usual diet Activity: increase activity as tolerated Hygiene: no restrictions Weight Bearing at Discharge: weight bear as tolerated Contact your physician if you experience:: Shortness of breath, Bleeding
[2017-02-26 15:54] VITALS: BP 133/72
== END 2017-02-26 20:00 | disposition home or self-care (01) | DRG 377 ==
LOC: N.5E 11:56 → SUATTDRO 12:40
PROVIDERS: ADMIT Internal Medicine; ATTEND Internal Medicine